=== PATIENT | male | born 1980 | race Caucasian/White ===

== ENCOUNTER 2017-09-23 07:24 | Emergency (ER) | payer OTHER ==
[~2017-09-23] VITALS: Ht 188 cm; Wt 81.7 kg
[2017-09-23 07:49] LABS: HEMATOCRIT 48.1 % (42.0-52.0); HEMOGLOBIN 16.2 gm/dL (14.0-18.0); MCH 30.5 pg (26.0-34.0); MCHC 33.6 g/dL (28.0-37.0); MCV 90.8 fL (80.0-100.0); RBC 5.29 mil/uL (4.50-6.00); RDW-CV 13.6 % (10.5-14.5); WBC 8.5 thou/uL (4.0-11.0)
[2017-09-23 08:03] LABS: SALICYLATE 4.1 mg/dL (2.8-20.0)
[2017-09-23 08:04] LABS: ACETAMINOPHEN < 2 ug/mL (10-30); ALCOHOL < 10 mg/dL (<10)
[2017-09-23 08:10] LABS: URINE BILIRUBIN NEGATIVE (Negative); URINE BLOOD TRACE (Negative); URINE CLARITY CLEAR; URINE COLOR YELLOW; URINE GLUCOSE-RANDOM NEGATIVE (Negative); URINE KETONES NEGATIVE (Negative); URINE LEUKOCYTES NEGATIVE (Negative); URINE NITRITE NEGATIVE (Negative); URINE PROTEIN NEGATIVE (Negative); URINE SPECIFIC GRAVITY >= 1.030 (1.005-1.030)
[2017-09-23 08:18] LABS: AMP/METHAMP POSITIVE (Negative); BARBITURATES Negative (Negative); BENZODIAZEPINES POSITIVE (Negative); COCAINE Negative (Negative); METHADONE Negative (Negative); OPIATES Negative (Negative); PCP Negative (Negative); THC POSITIVE (Negative)
[2017-09-23 08:29] LABS: ALBUMIN 4.1 g/dL (3.4-5.0); CALCIUM 9.4 mg/dL (8.5-10.1); CREATININE 0.9 mg/dL (0.6-1.3); POTASSIUM 3.7 mmol/L (3.5-5.1); TOTAL BILIRUBIN 0.4 mg/dL (<0.1-1.0); TOTAL PROTEIN 7.3 g/dL (6.4-8.2)
--- NOTE | 2017-09-23 10:00 | EKG ---
[place] [address] ELECTROCARDIOGRAM REPORT Name: CHINMAYSCARLETT JHA Room: [facility].#: [id number] Admission: Attend Phys: Discharge: Date of : 80 Report #: [id number] THIS REPORT FOR: //name// [facility] ED Test Date: 2017-09-23 Test Time: 07:28:31 Pat Name: SCARLETT ACHARYA Department: Room: Gender: [employer]ter: Mars WOLF : 1980 Requested By: Nishi Beckman Order Number: [id number] MD: Dustin Phillips Measurements Intervals [place] Rate: 69 P: 60 NM: 119 QRS: 73 QRSD: 97 T: 59 QT: 398 QTc: 427 Interpretive Statements Sinus rhythm Borderline short NM interval No previous ECG available for comparison Electronically Signed On 09-23-2017 10:00:35 CDT by Dustin Phillips [email or web address] <ELECTRONICALLY SIGNED> By: Dustin Phillips MD, [facility] 09/23/17 1000 0728 0728 Dustin Phillips MD, FACC /EPI
[2017-09-23 11:29] VITALS: BP 120/90
== END 2017-09-23 11:29 | disposition home or self-care (01) ==
LOC: M.ERS 07:24
PROVIDERS: Personal Emergency Response Attendant
DX: F19.10 Other psychoactive substance abuse, uncomplicated (principal)